=== PATIENT | male | born 1945 | race Caucasian/White ===

== ENCOUNTER 2017-02-19 17:22 | Emergency (ER) | payer OTHER ==
[2017-02-19 17:36] VITALS: BP 200/75; PULSE 76; TEMP 97.9; BMI 21.9
--- NOTE | 2017-02-19 18:32 | PDOC ---
History of Present Illness - General History Source: Patient Exam Limitations: No Limitations - History of Present Illness Initial Comments: 02/19/17 18:23 High functioning 71-year-old male with hypertension and high cholesterol presents with right index finger laceration. Patient was cutting his pills when the knife slipped and punctured his right index finger. No other injuries, no motor or sensory deficits, presents for laceration repair. Does not feel lightheaded, tetanus is up-to-date. <Donald Glez - Last Filed: 02/19/17 18:23> <Rachel Myers - Last Filed: 02/19/17 18:54> - General Chief Complaint: Laceration Stated Complaint: LACERATION TO RIGHT INDEX FINGER Time Seen by Provider: 02/19/17 17:55 Past History - Past Medical History Anemia: No Asthma: No Cancer: No Cardiac Disorders: No CVA: No COPD: No CHF: No Dementia: No Diabetes: No GI Disorders: Yes (H/O COLON POLYPS) Disorders: No HTN: Yes Hypercholesterolemia: Yes Liver Disease: No Seizures: No Thyroid Disease: No - Surgical History Abdominal Surgery: Yes (LEFT INGUINAL HERNIA REPAIR) Appendectomy: No Cardiac Surgery: No Cholecystectomy: No Lung Surgery: No Neurologic Surgery: No Orthopedic Surgery: No - Immunization History Immunization Up to Date: Yes - Suicide/Smoking/Psychosocial Hx Smoking History: Former smoker Have you smoked in the past 12 months: No If you are a former smoker, when did you quit?: 2010 Information on smoking cessation initiated: No Hx Alcohol Use: No Drug/Substance Use Hx: No Substance Use Type: None Hx Substance Use Treatment: No <Donald Glez - Last Filed: 02/19/17 18:23> <Rachel Myers - Last Filed: 02/19/17 18:54> - Past Medical History Allergies/Adverse Reactions: Allergies Allergy/AdvReac Type Severity Reaction Status Date / Time No Known Drug Allergies Allergy Verified 02/19/17 17:24 Home Medications: Ambulatory Orders Atenolol [Tenormin -] 25 mg PO DAILY 01/04/16 Atorvastatin Ca [Lipitor] 10 mg PO DAILY 01/04/16 Irbesartan [Avapro] 75 mg PO BID 01/04/16 Doxazosin Mesylate [Cardura -] 1 mg PO DAILY 02/19/17 Irbesartan [Avapro] 130 mg PO DAILY 02/19/17 Review of Systems - Review of Systems Constitutional: No: Weakness Cardiac (ROS): No: Lightheadedness, Syncope Integumentary: Yes: See HPI Neurological: No: Tingling, Weakness <Donald Glez - Last Filed: 02/19/17 18:23> *Physical Exam - Vital Signs Last Vital Signs Temp Pulse Resp BP Pulse Ox 97.9 F 76 16 200/75 99 02/19/17 17:24 02/19/17 17:24 02/19/17 17:24 02/19/17 17:24 02/19/17 17:24 - Physical Exam Comments: 02/19/17 18:24 Vital signs normal. GENERAL: The patient is awake, alert, and fully oriented, in no acute distress. HEAD: Normal with no signs of trauma. EYES: Pupils equal, round and reactive to light, extraocular movements intact, sclera anicteric, conjunctiva clear. EXTREMITIES: Normal range of motion, no edema. 5 out of 5 flexion/extension of right index finger MCP/PIP/DIP. Brisk cap refill, sensory intact. NEUROLOGICAL: Normal speech, normal gait. PSYCH: Normal mood, normal affect. SKIN: 2 cm curvilinear laceration through dermis along the radial aspect of the proximal right index finger. No deep tissue exposure or injury, no tendon exposure. <Donald Glez - Last Filed: 02/19/17 18:23> - Vital Signs Last Vital Signs Temp Pulse Resp BP Pulse Ox 97.9 F 76 16 200/75 99 02/19/17 17:24 02/19/17 17:24 02/19/17 17:24 02/19/17 17:24 02/19/17 17:24 <Rachel Myers - Last Filed: 02/19/17 18:54> Procedures - Laceration/Wound Repair Right Lateral Proximal 2nd digit Wound Length: to 2.5 cm Wound Explored: clean, no foreign body present Wound's Depth, Shape: superficial, linear, flap Irrigated w/ Saline: Yes Betadine Prep: No Anesthesia: 1% Lidocaine Amount of Anesthetic (ccs): 4 (ml) Wound Debrided: minimal Wound Repaired With: Sutures Suture Size/Type: 4:0, nylon Number of Sutures: 3 Layer Closure: No Deep Layer Suture Size/Type: 4:0 Sterile Dressing Applied: Yes Splint Applied: Yes Progress: 2.5 cm linear flap laceration irrigated with 500 ml of NS and anesthetized with 1% lidocaine approximately 4 mL. After adequate anesthesia, her hand was sutured with 4.0 nylon sutures (3, in a simple interrupted fashion). He was neurovascularly intact before and after the sutures were placed. It was then wrapped in gauze. 02/19/17 18:51 <Rachel Myres - Last Filed: 02/19/17 18:54> Medical Decision Making - Medical Decision Making 02/19/17 18:26 71-year-old male with simple right index finger laceration, no deep tissue exposure or injury. Neurovascularly intact. Tetanus up-to-date Laceration repair was supervised by me, performed by resident as per note Wound care instructions given, return precautions discussed <Donald Glez - Last Filed: 02/19/17 18:23> - Medical Decision Making 02/19/17 18:54 <Rachel Myers - Last Filed: 02/19/17 18:54> *DC/Admit/Observation/Transfer <Donald Glez - Last Filed: 02/19/17 18:23> <Rachel Myers - Last Filed: 02/19/17 18:54> Diagnosis at time of Disposition: Laceration of right index finger Qualifiers: Encounter type: initial encounter Damage to nail status: without damage Foreign body presence: without foreign body Qualified Code(s): S61.210A - Laceration without foreign body of right index finger without damage to nail, initial encounter - Discharge Dispostion Disposition: HOME Condition at time of disposition: Stable - Patient Instructions Printed Discharge Instructions: DI for Laceration Repair Additional Instructions: Tylenol 1000 mg every 8 hours and/or ibuprofen 600 mg every 8 hours as needed for any pain. Elevate the affected areas for 20 minutes every 3-4 hours to reduce swelling. Maintain current dressing for 48 hours, then continue to keep the wound clean and dry without soaking or scrubbing. Apply bacitracin twice daily until fully healed. Continue your medications as previously prescribed by your physician. Return to the emergency department in 7-10 days for suture removal. Return to the emergency department sooner for any new or concerning symptoms, particularly redness or swelling, pain or discoloration, fever or chills, bleeding or pus.
== END 2017-02-19 19:04 | disposition home or self-care (01) ==
LOC: FER 17:22
PROC: 0HQFXZZ Repair Right Hand Skin, External Approach (ICD-10-PCS; principal; 2017-02-19)
DX: S61.210A Laceration without foreign body of right index finger without damage to nail, initial encounter (principal); W26.0XXA Contact with knife, initial encounter; Y93.89 Activity, other specified; Y92.9 Unspecified place or not applicable; Z87.891 Personal history of nicotine dependence; I10 Essential (primary) hypertension; E78.00 Pure hypercholesterolemia, unspecified
CPT/HCPCS: 99281-25